=== PATIENT | male | born 1955 | race Caucasian/White ===

== ENCOUNTER 2017-04-06 14:07 | Emergency (ER) | payer MEDICARE ==
[~2017-04-06] VITALS: Wt 104.3 kg
[~2017-04-06 14:07] MED LIST: ATARAX,VISTARIL10 MG PO; ATARAX,VISTARIL50 MG PO; ATARAX25 MG PO; BACTRIM DS 8001 TA1 PO; BACTROBAN22 TP; BANOPHEN25 M1 PO; BENADRYL ALLERG25 M5 PO; BLOOD PRESSURE MED PO; CEPHALEXIN500 M1 PO; DELTASONE20 M1 PO; ELIMITE 5%60 GM T; HYDROCODONE BIT1 T11 PO; HYDROXYZINE PAM50 MG PO; KEFLEX500 M1 PO; KENALOG 0.1%80 GM T; LIDEX 0.05% CRE15 GM T; LIDEX0.05% T; LISINOPRIL10 M1 PO; MEDROL DOSEPAK4 MG PO; PREDNISONE10 MG PO; RANITIDINE HCL150 M1 PO; ROBITUSSIN AC 110 ML PO; TAMSULOSIN HCL0.4 MG JT; VASOTEC5 MG PO; VIBRAMYCIN100 MG PO; VISTARIL25 M2 PO; VISTARIL25 MG PO; VISTARIL50 MG PO
[2017-04-06] MEDS ORDERED: PREDNISONE10 MG PO (14:44)
[2017-04-06] MEDS ORDERED: KENALOG 0.1% OI15 GM T (14:44)
== END 2017-04-06 15:38 | disposition home or self-care (01) ==
LOC: EDSTATUS 14:07 → ED 14:08
DX: R21 Rash and other nonspecific skin eruption (principal); F17.200 Nicotine dependence, unspecified, uncomplicated; I10 Essential (primary) hypertension; Z98.890 Other specified postprocedural states

== ENCOUNTER 2017-05-10 00:12 | Emergency (ER) | payer MEDICARE ==
[~2017-05-10] VITALS: Ht 185.4 cm; Wt 108.9 kg
[~2017-05-10 00:12] MED LIST changes: +KENALOG 0.1% OI15 GM T
[2017-05-10] MEDS ORDERED: CEPHALEXIN500 M1 PO (00:53)
[2017-05-10] MEDS ORDERED: BENADRYL25 M2 PO (00:53)
== END 2017-05-10 01:09 | disposition home or self-care (01) ==
LOC: ED 00:12
DX: R21 Rash and other nonspecific skin eruption (principal); F17.200 Nicotine dependence, unspecified, uncomplicated

== ENCOUNTER 2017-06-11 22:47 | Emergency (ER) | payer MEDICARE ==
[~2017-06-11] VITALS: Ht 185.4 cm; Wt 108.9 kg
[~2017-06-11 22:47] MED LIST changes: +BENADRYL25 M2 PO
[2017-06-11] MEDS ORDERED: CYCLOBENZAPRINE10 MG PO (23:58)
== END 2017-06-12 00:13 | disposition home or self-care (01) ==
LOC: ED 22:47
DX: M25.512 Pain in left shoulder (principal); I10 Essential (primary) hypertension; F17.200 Nicotine dependence, unspecified, uncomplicated

== ENCOUNTER → 2017-10-14 | Outpatient (CLI) | payer MEDICARE ==
[~2017-10-14] MED LIST changes: +CYCLOBENZAPRINE10 MG PO
== END | disposition home or self-care (01) ==
LOC: LAB 14:56
DX: R97.20 Elevated prostate specific antigen [PSA] (principal)

== ENCOUNTER 2017-10-25 17:56 | Emergency (ER) | payer MEDICARE ==
[~2017-10-25] VITALS: Ht 185.4 cm; Wt 108.9 kg
[2017-10-25] MEDS ORDERED: TAMSULOSIN HCL0.4 MG PO (18:00)
[2017-10-25 18:21] LABS: BASO % 0.6 % (0.0-1.0); EOS # 0.3 10*3/uL (0.0-0.4); EOS % 4.5 % (1.0-4.0); HEMATOCRIT 47.3 % (42.0-52.0); HEMOGLOBIN 16.3 g/dl (14.0-18.0); LYMPH % 30.5 % (27.0-41.0); MEAN CELL VOLUME 93.8 fl (80.0-94.0); MEAN CORPUSCULAR HGB 32.3 pg (27.0-31.0); MEAN CORPUSCULAR HGB CONC 34.5 g/dl (33.0-37.0); MEAN PLATELET VOLUME 9.2 fl (9.6-12.3); MONO # 0.5 10*3/uL (0.1-1.0); MONO % 7.9 % (3.0-9.0); NEUT # 3.6 10*3/uL (2.3-7.9); NEUT % 56.3 % (47.0-73.0); PLATELET COUNT AUTOMATED 229 10*3/uL (130-400); RED BLOOD COUNT 5.04 10*6/uL (4.50-5.90); RED CELL DISTRI WIDTH 13.2 % (0-14.5); WHITE BLOOD COUNT 6.5 10*3/uL (4.8-10.8)
[2017-10-25 18:28] LABS: INTERNATIONAL NORM RATIO 0.9 (2.0-3.5)
[2017-10-25 18:47] LABS: ALBUMIN 3.8 gm/dl (3.1-4.5); BUN 5 mg/dl (7-24); CHLORIDE 106 mmol/L (98-107); CREATININE 1.08 mg/dL (0.70-1.30); POTASSIUM 4.2 mmol/L (3.5-5.1); SGOT/AST 13 IU/L (3-35); SGPT/ALT 23 U/L (12-78); SODIUM 142 mmol/L (136-145); TOTAL PROTEIN 7.3 gm/dL (6.4-8.2)
[2017-10-25 18:49] LABS: ALKALINE PHOSPHATASE 91 U/L (45-117); TROPONIN I < 0.015 ng/ml (<0.045)
== END 2017-10-25 21:50 | disposition home or self-care (01) ==
LOC: ED 17:56
PROVIDERS: Physician Assistant
DX: I10 Essential (primary) hypertension (principal); F17.200 Nicotine dependence, unspecified, uncomplicated; M25.512 Pain in left shoulder

== ENCOUNTER 2017-10-27 16:24 | Emergency (ER) | payer MEDICARE ==
[~2017-10-27] VITALS: Wt 111.1 kg
[~2017-10-27 16:24] MED LIST changes: +TAMSULOSIN HCL0.4 MG PO
[2017-10-27 17:31] LABS: BASO % 0.6 % (0.0-1.0); EOS # 0.1 10*3/uL (0.0-0.4); EOS % 2.1 % (1.0-4.0); HEMOGLOBIN 15.9 g/dl (14.0-18.0); LYMPH # 1.5 10*3/uL (1.3-4.4); LYMPH % 22.7 % (27.0-41.0); MEAN CELL VOLUME 91.5 fl (80.0-94.0); MEAN CORPUSCULAR HGB 31.6 pg (27.0-31.0); MEAN CORPUSCULAR HGB CONC 34.6 g/dl (33.0-37.0); MEAN PLATELET VOLUME 9.3 fl (9.6-12.3); MONO # 0.5 10*3/uL (0.1-1.0); NEUT # 4.5 10*3/uL (2.3-7.9); NEUT % 67.5 % (47.0-73.0); PLATELET COUNT AUTOMATED 243 10*3/uL (130-400); RED BLOOD COUNT 5.03 10*6/uL (4.50-5.90); RED CELL DISTRI WIDTH 13.2 % (0-14.5); WHITE BLOOD COUNT 6.7 10*3/uL (4.8-10.8)
[2017-10-27 17:54] LABS: ALBUMIN 3.8 gm/dl (3.1-4.5); ALKALINE PHOSPHATASE 84 U/L (45-117); BUN 6 mg/dl (7-24); CHLORIDE 106 mmol/L (98-107); CREATININE 1.12 mg/dL (0.70-1.30); POTASSIUM 4.3 mmol/L (3.5-5.1); SGOT/AST 14 IU/L (3-35); SGPT/ALT 22 U/L (12-78); SODIUM 140 mmol/L (136-145); TOTAL PROTEIN 7.2 gm/dL (6.4-8.2)
[2017-10-27 18:07] LABS: TROPONIN I < 0.015 ng/ml (<0.045)
[2017-10-27] MEDS ORDERED: EC NAPROSYN,NA500 MG PO (19:17)
== END 2017-10-27 19:27 | disposition home or self-care (01) ==
LOC: ED 16:24
PROVIDERS: Emergency Medicine
DX: M79.602 Pain in left arm (principal); I10 Essential (primary) hypertension; F17.200 Nicotine dependence, unspecified, uncomplicated

== ENCOUNTER 2017-12-07 10:34 | Emergency (ER) | payer MEDICARE ==
[~2017-12-07] VITALS: Ht 185.4 cm; Wt 113.4 kg
[~2017-12-07 10:34] MED LIST changes: +EC NAPROSYN,NA500 MG PO
== END 2017-12-07 12:11 | disposition home or self-care (01) ==
LOC: ED 10:34
DX: M79.641 Pain in right hand (principal); I10 Essential (primary) hypertension; Z98.890 Other specified postprocedural states

== ENCOUNTER 2018-02-05 21:07 | Emergency (ER) | payer MEDICARE ==
[~2018-02-05] VITALS: Ht 185.4 cm; Wt 113.4 kg
[2018-02-05] MEDS ORDERED: HYDROCHLOROTHIA25 M1 PO (21:17)
[2018-02-05] MEDS ORDERED: Motrin,Rufen800 MG PO (23:03)
[2018-02-05] MEDS ORDERED: Orphenadrine C100 MG PO (23:03)
== END 2018-02-05 23:56 | disposition home or self-care (01) ==
LOC: ED 21:07
DX: S86.911A Strain of unspecified muscle(s) and tendon(s) at lower leg level, right leg, initial encounter (principal); F17.200 Nicotine dependence, unspecified, uncomplicated; I10 Essential (primary) hypertension; Z79.899 Other long term (current) drug therapy; Z98.890 Other specified postprocedural states; X50.1XXA Overexertion from prolonged static or awkward postures, initial encounter; Y93.89 Activity, other specified; Y92.89 Other specified places as the place of occurrence of the external cause; Y99.9 Unspecified external cause status

== ENCOUNTER 2018-02-13 00:06 | Emergency (ER) | payer MEDICARE ==
[~2018-02-13] VITALS: Wt 90.7 kg
[~2018-02-13 00:06] MED LIST changes: +HYDROCHLOROTHIA25 M1 PO; +Motrin,Rufen800 MG PO; +Orphenadrine C100 MG PO
[2018-02-13] MEDS ORDERED: KENALOG 0.1%80 GM T (00:48)
== END 2018-02-13 00:56 | disposition home or self-care (01) ==
LOC: ED 00:06
DX: L30.8 Other specified dermatitis (principal); I10 Essential (primary) hypertension; F17.200 Nicotine dependence, unspecified, uncomplicated; Z98.890 Other specified postprocedural states; Z79.899 Other long term (current) drug therapy

== ENCOUNTER → 2018-07-12 | Outpatient (CLI) | payer MEDICARE ==
[2018-07-12 17:51] LABS: BASO # 0.1 10*3/uL (0.0-0.1); BASO % 0.8 % (0.0-1.0); EOS # 0.4 10*3/uL (0.0-0.4); EOS % 5.6 % (1.0-4.0); HEMATOCRIT 46.7 % (42.0-52.0); LYMPH # 2.1 10*3/uL (1.3-4.4); LYMPH % 32.7 % (27.0-41.0); MEAN CORPUSCULAR HGB 32.2 pg (27.0-31.0); MEAN CORPUSCULAR HGB CONC 34.3 g/dl (33.0-37.0); MEAN PLATELET VOLUME 9.2 fl (9.6-12.3); MONO # 0.6 10*3/uL (0.1-1.0); MONO % 9.3 % (3.0-9.0); NEUT # 3.3 10*3/uL (2.3-7.9); NEUT % 51.4 % (47.0-73.0); PLATELET COUNT AUTOMATED 229 10*3/uL (130-400); RED BLOOD COUNT 4.97 10*6/uL (4.50-5.90); RED CELL DISTRI WIDTH 12.8 % (0-14.5); WHITE BLOOD COUNT 6.4 10*3/uL (4.8-10.8)
[2018-07-12 18:00] LABS: BILIRUBIN NEGATIVE (NEGATIVE); BLOOD NEGATIVE (NEGATIVE); CLARITY CLEAR (CLEAR); COLOR YELLOW (YELLOW); GLUCOSE NEGATIVE (NEGATIVE); KETONE NEGATIVE (NEGATIVE); LEUKO ESTERASE NEGATIVE (NEGATIVE); NITRITE NEGATIVE (NEGATIVE); PH 6.5 (5.0-9.0); SPECIFIC GRAVITY <= 1.005 (1.005-1.030); UROBILINOGEN 0.2 E.U./dl (0.2-1.0)
[2018-07-12 18:07] LABS: EPITHELIAL CELLS 0-2; RBC 0-2 rbc/hpf (0-2); WBC 0-2 wbc/hpf (0-5)
[2018-07-12 18:08] LABS: BACTERIA TRACE
[2018-07-12 18:21] LABS: ALBUMIN 3.6 gm/dl (3.1-4.5); ALKALINE PHOSPHATASE 91 U/L (45-117); BUN 7 mg/dl (7-24); CHLORIDE 105 mmol/L (98-107); CREATININE 1.01 mg/dL (0.70-1.30); POTASSIUM 3.8 mmol/L (3.5-5.1); SGOT/AST 14 IU/L (3-35); SGPT/ALT 20 U/L (12-78); SODIUM 139 mmol/L (136-145); TOTAL PROTEIN 7.3 gm/dL (6.4-8.2)
== END | disposition home or self-care (01) ==
LOC: LAB 16:39 → US 17:00
PROVIDERS: Urology
DX: N28.1 Cyst of kidney, acquired (principal); K57.30 Diverticulosis of large intestine without perforation or abscess without bleeding; D40.0 Neoplasm of uncertain behavior of prostate; I10 Essential (primary) hypertension; R40.1 Stupor

== ENCOUNTER → 2018-09-09 | Outpatient (CLI) | payer MEDICARE | END | disposition home or self-care (01) | LOC: CT 08:00 | DX: C61 Malignant neoplasm of prostate (principal); K42.9 Umbilical hernia without obstruction or gangrene; N28.1 Cyst of kidney, acquired; R06.02 Shortness of breath; I10 Essential (primary) hypertension; F17.210 Nicotine dependence, cigarettes, uncomplicated ==

== ENCOUNTER → 2018-09-13 | Outpatient (CLI) | payer MEDICARE | END | disposition home or self-care (01) | LOC: NM 09:45 | DX: C61 Malignant neoplasm of prostate (principal); M19.071 Primary osteoarthritis, right ankle and foot; M19.031 Primary osteoarthritis, right wrist; M19.011 Primary osteoarthritis, right shoulder; M19.012 Primary osteoarthritis, left shoulder ==

== ENCOUNTER → 2019-06-21 | Outpatient (CLI) | payer MEDICARE | END | disposition home or self-care (01) | LOC: RESCLI 01:46 | DX: L30.9 Dermatitis, unspecified (principal); Z79.899 Other long term (current) drug therapy; Z88.8 Allergy status to other drugs, medicaments and biological substances ==

== ENCOUNTER → 2019-07-28 | Outpatient (CLI) | payer MEDICARE ==
--- NOTE | ~2019-07-28 | EKG ---
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
== END | disposition home or self-care (01) ==
LOC: RESCLI 01:11
DX: L30.9 Dermatitis, unspecified (principal)

== ENCOUNTER → 2019-08-25 | Outpatient (CLI) | payer MEDICARE | END | disposition home or self-care (01) | LOC: CARD 11:37 | DX: I35.8 Other nonrheumatic aortic valve disorders (principal); I49.9 Cardiac arrhythmia, unspecified; Z79.899 Other long term (current) drug therapy ==

== ENCOUNTER → 2019-09-01 | Outpatient (CLI) | payer MEDICARE | END | disposition home or self-care (01) | LOC: RESCLI 00:43 | DX: L30.9 Dermatitis, unspecified (principal); I10 Essential (primary) hypertension; I49.9 Cardiac arrhythmia, unspecified; N52.9 Male erectile dysfunction, unspecified; F17.200 Nicotine dependence, unspecified, uncomplicated; R01.1 Cardiac murmur, unspecified; Z79.899 Other long term (current) drug therapy ==

== ENCOUNTER 2019-10-21 01:26 | Emergency (ER) | payer MEDICARE ==
[~2019-10-21] VITALS: Ht 185.4 cm; Wt 124.7 kg
[2019-10-21 02:52] LABS: BASO # 0.1 10*3/uL (0.0-0.1); BASO % 0.7 % (0.0-1.0); EOS # 0.4 10*3/uL (0.0-0.4); EOS % 4.8 % (1.0-4.0); HEMOGLOBIN 15.5 g/dl (14.0-18.0); LYMPH # 2.5 10*3/uL (1.3-4.4); LYMPH % 28.5 % (27.0-41.0); MEAN CELL VOLUME 95.3 fl (80.0-94.0); MEAN CORPUSCULAR HGB 31.4 pg (27.0-31.0); MEAN PLATELET VOLUME 9.4 fl (9.6-12.3); MONO # 0.8 10*3/uL (0.1-1.0); NEUT # 4.9 10*3/uL (2.3-7.9); NEUT % 56.8 % (47.0-73.0); PLATELET COUNT AUTOMATED 236 10*3/uL (130-400); RED BLOOD COUNT 4.93 10*6/uL (4.50-5.90); RED CELL DISTRI WIDTH 13.6 % (0-14.5); WHITE BLOOD COUNT 8.6 10*3/uL (4.8-10.8)
[2019-10-21 03:08] LABS: ALBUMIN 3.4 gm/dl (3.1-4.5); ALKALINE PHOSPHATASE 99 U/L (45-117); BUN 9 mg/dl (7-24); CHLORIDE 111 mmol/L (98-107); CREATININE 1.03 mg/dL (0.70-1.30); LIPASE 294 U/L (73-393); POTASSIUM 3.5 mmol/L (3.5-5.1); SGOT/AST 13 IU/L (3-35); SODIUM 142 mmol/L (136-145); TOTAL PROTEIN 6.7 gm/dL (6.4-8.2)
[2019-10-21 03:10] LABS: SGPT/ALT 20 U/L (12-78)
[2019-10-21 03:16] LABS: BILIRUBIN NEGATIVE (NEGATIVE); BLOOD NEGATIVE (NEGATIVE); CLARITY CLEAR (CLEAR); COLOR YELLOW (YELLOW); GLUCOSE NEGATIVE (NEGATIVE); KETONE NEGATIVE (NEGATIVE); LEUKO ESTERASE NEGATIVE (NEGATIVE); NITRITE NEGATIVE (NEGATIVE); PH 6.5 (5.0-9.0); SPECIFIC GRAVITY 1.005 (1.005-1.030); UROBILINOGEN 0.2 E.U./dl (0.2-1.0)
[2019-10-21 03:39] LABS: BACTERIA TRACE
== END 2019-10-21 05:11 | disposition home or self-care (01) ==
LOC: ED 01:26
PROVIDERS: Emergency Medicine
DX: K63.89 Other specified diseases of intestine (principal); I10 Essential (primary) hypertension; Z79.899 Other long term (current) drug therapy; Z86.73 Personal history of transient ischemic attack (TIA), and cerebral infarction without residual deficits

== ENCOUNTER 2020-01-13 14:26 | Emergency (ER) | payer OTHER ==
[~2020-01-13] VITALS: Ht 185.4 cm; Wt 108.9 kg
[2020-01-13 15:11] LABS: BASO # 0.1 10*3/uL (0.0-0.1); BASO % 0.8 % (0.0-1.0); EOS # 0.5 10*3/uL (0.0-0.4); EOS % 5.8 % (1.0-4.0); LYMPH # 1.7 10*3/uL (1.3-4.4); MEAN CELL VOLUME 93.9 fl (80.0-94.0); MEAN CORPUSCULAR HGB CONC 34.1 g/dl (33.0-37.0); MEAN PLATELET VOLUME 9.5 fl (9.6-12.3); MONO # 0.8 10*3/uL (0.1-1.0); MONO % 10.6 % (3.0-9.0); NEUT # 4.9 10*3/uL (2.3-7.9); NEUT % 61.7 % (47.0-73.0); PLATELET COUNT AUTOMATED 293 10*3/uL (130-400); RED CELL DISTRI WIDTH 13.2 % (0-14.5)
[2020-01-13 15:27] LABS: ALBUMIN 3.3 gm/dl (3.1-4.5); ALKALINE PHOSPHATASE 108 U/L (45-117); BUN 10 mg/dl (7-24); CHLORIDE 110 mmol/L (98-107); CREATININE 1.03 mg/dL (0.70-1.30); POTASSIUM 3.9 mmol/L (3.5-5.1); SGOT/AST 24 IU/L (3-35); SGPT/ALT 30 U/L (12-78); SODIUM 141 mmol/L (136-145); TOTAL PROTEIN 6.9 gm/dL (6.4-8.2)
[2020-01-13 16:55] LABS: BILIRUBIN NEGATIVE (NEGATIVE); BLOOD NEGATIVE (NEGATIVE); CLARITY CLEAR (CLEAR); COLOR YELLOW (YELLOW); GLUCOSE NEGATIVE (NEGATIVE); KETONE NEGATIVE (NEGATIVE); LEUKO ESTERASE NEGATIVE (NEGATIVE); NITRITE NEGATIVE (NEGATIVE); PH 7.5 (5.0-9.0); SPECIFIC GRAVITY 1.015 (1.005-1.030); UROBILINOGEN 0.2 E.U./dl (0.2-1.0)
[2020-01-13 16:56] LABS: BACTERIA TRACE
== END 2020-01-13 17:41 | disposition home or self-care (01) ==
LOC: ED 14:26
PROVIDERS: Emergency Medicine
DX: R10.9 Unspecified abdominal pain (principal); I10 Essential (primary) hypertension; F17.200 Nicotine dependence, unspecified, uncomplicated; Z79.899 Other long term (current) drug therapy; Z79.2 Long term (current) use of antibiotics; Z86.73 Personal history of transient ischemic attack (TIA), and cerebral infarction without residual deficits

== ENCOUNTER → 2020-02-03 | Day surgery (SDC) | payer OTHER ==
[~2020-02-03] VITALS: Ht 185.4 cm; Wt 113.4 kg
[~2020-02-03] MED LIST changes: +AMLODIPINE BESY10 MG PO; +ANUSOL-HC25 MG R; +HYDROXYZINE HCL25 MG PO; +LISINOPRIL20 MG PO
[2020-02-03 06:50] VITALS: BP 184/95
[2020-02-03 08:03] VITALS: BP 128/64
[2020-02-03 08:18] VITALS: BP 140/80
[2020-02-03 08:26] VITALS: BP 150/70
== END | disposition home or self-care (01) ==
LOC: SDC 01-30 09:30
DX: D12.3 Benign neoplasm of transverse colon (principal); D12.2 Benign neoplasm of ascending colon; K57.90 Diverticulosis of intestine, part unspecified, without perforation or abscess without bleeding; K64.8 Other hemorrhoids; I10 Essential (primary) hypertension; Z86.73 Personal history of transient ischemic attack (TIA), and cerebral infarction without residual deficits

== ENCOUNTER 2020-02-04 18:19 | Emergency (ER) | payer OTHER ==
[~2020-02-04] VITALS: Ht 185.4 cm; Wt 113.4 kg
[~2020-02-04 18:19] MED LIST changes: -ANUSOL-HC25 MG R
[2020-02-04 19:20] LABS: BASO # 0.1 10*3/uL (0.0-0.1); BASO % 0.9 % (0.0-1.0); EOS # 0.4 10*3/uL (0.0-0.4); HEMATOCRIT 44.3 % (42.0-52.0); LYMPH % 29.1 % (27.0-41.0); MEAN CELL VOLUME 95.3 fl (80.0-94.0); MEAN CORPUSCULAR HGB 32.3 pg (27.0-31.0); MEAN CORPUSCULAR HGB CONC 33.9 g/dl (33.0-37.0); MEAN PLATELET VOLUME 9.4 fl (9.6-12.3); MONO # 0.6 10*3/uL (0.1-1.0); MONO % 9.6 % (3.0-9.0); NEUT # 3.6 10*3/uL (2.3-7.9); NEUT % 54.3 % (47.0-73.0); PLATELET COUNT AUTOMATED 273 10*3/uL (130-400); RED BLOOD COUNT 4.65 10*6/uL (4.50-5.90); RED CELL DISTRI WIDTH 13.2 % (0-14.5); WHITE BLOOD COUNT 6.7 10*3/uL (4.8-10.8)
[2020-02-04 19:31] LABS: ACT PARTIAL THROMBO TIME 27.5 SECONDS (20.0-32.1); INTERNATIONAL NORM RATIO 0.9 (2.0-3.5)
[2020-02-04 19:34] LABS: ALBUMIN 3.4 gm/dl (3.1-4.5); ALKALINE PHOSPHATASE 105 U/L (45-117); BUN 6 mg/dl (7-24); CHLORIDE 109 mmol/L (98-107); CREATININE 0.99 mg/dL (0.70-1.30); POTASSIUM 4.1 mmol/L (3.5-5.1); SGOT/AST 11 IU/L (3-35); SGPT/ALT 20 U/L (12-78); SODIUM 143 mmol/L (136-145); TOTAL PROTEIN 6.7 gm/dL (6.4-8.2)
[2020-02-04] MEDS ORDERED: ANUSOL-HC25 MG R (20:56)
== END 2020-02-04 21:10 | disposition home or self-care (01) ==
LOC: ED 18:19
PROVIDERS: Emergency Medicine Emergency Medical Services
DX: K64.8 Other hemorrhoids (principal); I10 Essential (primary) hypertension; F17.200 Nicotine dependence, unspecified, uncomplicated; Z79.899 Other long term (current) drug therapy; Z86.718 Personal history of other venous thrombosis and embolism

== ENCOUNTER 2020-03-23 04:04 | Emergency (ER) | payer OTHER ==
[~2020-03-23] VITALS: Ht 185.4 cm; Wt 117.9 kg
[~2020-03-23 04:04] MED LIST changes: +ANUSOL-HC25 MG R
[2020-03-23 04:37] LABS: HEMATOCRIT 43.7 % (42.0-52.0); MEAN CORPUSCULAR HGB 31.7 pg (27.0-31.0); MEAN CORPUSCULAR HGB CONC 34.1 g/dl (33.0-37.0); MEAN PLATELET VOLUME 9.4 fl (9.6-12.3); PLATELET COUNT AUTOMATED 256 10*3/uL (130-400); RED CELL DISTRI WIDTH 13.2 % (0-14.5); WHITE BLOOD COUNT 8.6 10*3/uL (4.8-10.8)
[2020-03-23 04:49] LABS: BUN 6 mg/dl (7-24); CHLORIDE 109 mmol/L (98-107); CREATININE 0.96 mg/dL (0.70-1.30); POTASSIUM 3.6 mmol/L (3.5-5.1); SODIUM 140 mmol/L (136-145); URIC ACID 4.2 mg/dL (3.5-7.2)
[2020-03-23 04:56] LABS: ATYPICAL LYMPHS 3 % (0-0); PLATELET SUFFICIENCY NORMAL (NORMAL); TOTAL CELLS COUNTED 100 #CELLS
[2020-03-23] MEDS ORDERED: CEPHALEXIN500 M1 PO (05:29)
== END 2020-03-23 05:39 | disposition home or self-care (01) ==
LOC: ED 04:04
PROVIDERS: Emergency Medicine
DX: L03.116 Cellulitis of left lower limb (principal); I10 Essential (primary) hypertension; Z79.899 Other long term (current) drug therapy

== ENCOUNTER 2020-05-19 11:09 | Emergency (ER) | payer OTHER ==
[~2020-05-19] VITALS: Ht 185 cm; Wt 113.4 kg
[2020-05-19] MEDS ORDERED: ROBAXIN-750750 MG PO (12:12)
== END 2020-05-19 14:05 | disposition home or self-care (01) ==
LOC: ED 11:09
DX: S29.012A Strain of muscle and tendon of back wall of thorax, initial encounter (principal); F17.200 Nicotine dependence, unspecified, uncomplicated; Z79.899 Other long term (current) drug therapy; X58.XXXA Exposure to other specified factors, initial encounter; Y93.89 Activity, other specified; Y92.89 Other specified places as the place of occurrence of the external cause; Y99.8 Other external cause status

== ENCOUNTER 2020-06-05 20:18 | Emergency (ER) | payer OTHER ==
[~2020-06-05] VITALS: Ht 182.8 cm; Wt 90.7 kg
[~2020-06-05 20:18] MED LIST changes: +ROBAXIN-750750 MG PO
[2020-06-05 22:35] LABS: BASO # 0.1 10*3/uL (0.0-0.1); BASO % 0.6 % (0.0-1.0); EOS # 0.2 10*3/uL (0.0-0.4); EOS % 2.2 % (1.0-4.0); LYMPH # 1.8 10*3/uL (1.3-4.4); LYMPH % 19.9 % (27.0-41.0); MEAN CELL VOLUME 94.4 fl (80.0-94.0); MEAN CORPUSCULAR HGB CONC 32.9 g/dl (33.0-37.0); MEAN PLATELET VOLUME 9.7 fl (9.6-12.3); MONO # 0.7 10*3/uL (0.1-1.0); MONO % 8.4 % (3.0-9.0); NEUT % 68.7 % (47.0-73.0); PLATELET COUNT AUTOMATED 298 10*3/uL (130-400); RED BLOOD COUNT 5.19 10*6/uL (4.50-5.90); RED CELL DISTRI WIDTH 13.3 % (0-14.5); WHITE BLOOD COUNT 8.8 10*3/uL (4.8-10.8)
[2020-06-05 22:53] LABS: ALBUMIN 3.5 gm/dl (3.1-4.5); ALKALINE PHOSPHATASE 91 U/L (45-117); BUN 7 mg/dl (7-24); CHLORIDE 110 mmol/L (98-107); CREATININE 1.02 mg/dL (0.70-1.30); LIPASE 80 U/L (73-393); SGOT/AST 22 IU/L (3-35); SGPT/ALT 24 U/L (12-78); SODIUM 143 mmol/L (136-145); TOTAL PROTEIN 7.2 gm/dL (6.4-8.2)
[2020-06-05 22:54] LABS: POTASSIUM 4.3 mmol/L (3.5-5.1)
[2020-06-06] MEDS ORDERED: ANUSOL HC,ANUCO25 MG PO (00:40)
[2020-06-06 00:42] LABS: BILIRUBIN NEGATIVE; BLOOD NEGATIVE (NEGATIVE); CLARITY CLEAR (CLEAR); COLOR YELLOW (YELLOW); GLUCOSE NEGATIVE; KETONE NEGATIVE; PH 6.5 (4.5-8.0); SPECIFIC GRAVITY 1.025 (1.001-1.030)
[2020-06-06 00:43] LABS: LEUKO ESTERASE NEGATIVE (NEGATIVE); NITRITE NEGATIVE (NEGATIVE)
[2020-06-06 00:50] LABS: BACTERIA TRACE; EPITHELIAL CELLS 0-2; WBC 0-2 wbc/hpf (0-5)
== END 2020-06-06 01:00 | disposition home or self-care (01) ==
LOC: ED 20:18
PROVIDERS: Emergency Medicine
DX: K62.5 Hemorrhage of anus and rectum (principal); K64.9 Unspecified hemorrhoids; I10 Essential (primary) hypertension; Z79.899 Other long term (current) drug therapy; Z79.2 Long term (current) use of antibiotics

== ENCOUNTER 2020-06-18 13:40 | Emergency (ER) | payer OTHER ==
[~2020-06-18] VITALS: Ht 185.4 cm; Wt 113.4 kg
[~2020-06-18 13:40] MED LIST changes: +ANUSOL HC,ANUCO25 MG PO
== END 2020-06-18 16:43 | disposition home or self-care (01) ==
LOC: ED 13:40
DX: S96.912A Strain of unspecified muscle and tendon at ankle and foot level, left foot, initial encounter (principal); Z79.899 Other long term (current) drug therapy; X50.1XXA Overexertion from prolonged static or awkward postures, initial encounter; Y93.89 Activity, other specified; Y92.89 Other specified places as the place of occurrence of the external cause; Y99.8 Other external cause status

== ENCOUNTER 2021-01-30 18:33 | Inpatient (IN) | payer OTHER ==
[~2021-01-30] VITALS: Ht 185.4 cm; Wt 112.5 kg
[2021-01-30 18:40] VITALS: BP 220/120
[2021-01-30 19:02] VITALS: BP 190/108
[2021-01-30 19:19] LABS: HEMATOCRIT 49.5 % (42.0-52.0); MEAN CELL VOLUME 92.9 fl (80.0-94.0); MEAN CORPUSCULAR HGB 31.7 pg (27.0-31.0); MEAN CORPUSCULAR HGB CONC 34.1 g/dl (33.0-37.0); MEAN PLATELET VOLUME 9.7 fl (9.6-12.3); PLATELET COUNT AUTOMATED 273 10*3/uL (130-400); RED BLOOD COUNT 5.33 10*6/uL (4.50-5.90); RED CELL DISTRI WIDTH 13.4 % (0-14.5); WHITE BLOOD COUNT 18.4 10*3/uL (4.8-10.8)
[2021-01-30 19:35] LABS: ALBUMIN 3.8 gm/dl (3.1-4.5); ALKALINE PHOSPHATASE 91 U/L (45-117); BUN 10 mg/dl (7-24); CHLORIDE 108 mmol/L (98-107); CREATININE 0.98 mg/dL (0.70-1.30); LIPASE 88 U/L (73-393); POTASSIUM 4.1 mmol/L (3.5-5.1); SGOT/AST 19 IU/L (3-35); SGPT/ALT 27 U/L (12-78); SODIUM 139 mmol/L (136-145); TOTAL PROTEIN 7.2 gm/dL (6.4-8.2)
[2021-01-30 19:45] LABS: PLATELET SUFFICIENCY NORMAL (NORMAL); TOTAL CELLS COUNTED 100 #CELLS
[2021-01-30 20:42] LABS: BILIRUBIN Negative (Negative); BLOOD Negative (Negative); CLARITY Clear (Clear); COLOR Yellow (Yellow); GLUCOSE Negative (Negative); KETONE Negative (Negative); LEUKO ESTERASE Negative (Negative); NITRITE Negative (Negative); SPECIFIC GRAVITY 1.015 (1.001-1.030); UROBILINOGEN 0.2 E.U./dl (0.0-1.0)
[2021-01-30 21:05] LABS: PH 8.5 (4.5-8.0)
[2021-01-30 21:10] LABS: BACTERIA TRACE; EPITHELIAL CELLS 0-2; WBC 0-2 wbc/hpf (0-5)
[2021-01-30 23:45] VITALS: BP 188/94
[2021-01-31] VITALS: BP 188/94
[2021-01-31 05:18] LABS: ALBUMIN 3.4 gm/dl (3.1-4.5); BUN 12 mg/dl (7-24); CHLORIDE 107 mmol/L (98-107); CHOLESTEROL 176 mg/dL (<200); CREATININE 1.03 mg/dL (0.70-1.30); POTASSIUM 3.7 mmol/L (3.5-5.1); SGOT/AST 15 IU/L (3-35); SGPT/ALT 21 U/L (12-78); SODIUM 138 mmol/L (136-145); TOTAL PROTEIN 6.8 gm/dL (6.4-8.2); TRIGLYCERIDES 101 mg/dl (<150)
[2021-01-31 05:25] LABS: ALKALINE PHOSPHATASE 82 U/L (45-117); LDL CHOLESTEROL 113 mg/dL (9-159); THYROID STIM HORMONE (HS) 0.867 uIU/ml (0.358-4.75)
[2021-01-31 06:17] LABS: HEMATOCRIT 47.3 % (42.0-52.0); MEAN CORPUSCULAR HGB 31.6 pg (27.0-31.0); MEAN CORPUSCULAR HGB CONC 33.6 g/dl (33.0-37.0); MEAN PLATELET VOLUME 10.5 fl (9.6-12.3); PLATELET COUNT AUTOMATED 248 10*3/uL (130-400); RED BLOOD COUNT 5.03 10*6/uL (4.50-5.90); RED CELL DISTRI WIDTH 13.3 % (0-14.5); WHITE BLOOD COUNT 23.3 10*3/uL (4.8-10.8)
[2021-01-31 06:20] LABS: ACT PARTIAL THROMBO TIME 29.3 SECONDS (20.0-32.1)
[2021-01-31 06:59] LABS: BURR CELLS FEW; PLATELET SUFFICIENCY NORMAL (NORMAL); TOTAL CELLS COUNTED 100 #CELLS
[2021-01-31 08:00] VITALS: BP 131/68
[2021-01-31 08:01] LABS: VITAMIN D, 25-HYDROXY 5.6 ng/mL (30-100)
[2021-01-31 12:00] VITALS: BP 174/74
[2021-01-31 16:00] VITALS: BP 154/62
== END 2021-01-31 16:47 | disposition short-term general hospital (02) | DRG 871 ==
LOC: ED 18:33 → EDHOLD 22:16 → 4E 22:16 → 5E 23:17 → 4E 23:20
PROVIDERS: Hospitalist; Physician Assistant; ADMIT Internal Medicine; ATTEND Internal Medicine
DX: A41.9 Sepsis, unspecified organism (principal); K55.069 Acute infarction of intestine, part and extent unspecified; K52.9 Noninfective gastroenteritis and colitis, unspecified; I16.0 Hypertensive urgency; I10 Essential (primary) hypertension; Z79.899 Other long term (current) drug therapy; Z68.32 Body mass index [BMI] 32.0-32.9, adult

== ENCOUNTER → 2021-05-02 | Outpatient (CLI) | payer OTHER ==
[~2021-05-02] MED LIST changes: +ASPIRIN CHEWABL81 MG PO; +CLOPIDOGREL75 MG PO; +HYDR25T PO; +HYDROCHLOROTH12.5 M3 PO; +HYDROXYZINE PAM25 M1 PO; +LISINOPRIL40 MG PO; +MIRTAZAPINE7.5 MG PO; +NAPROSYN500 MG PO; +NICODERM CQ1 EAC1 T; +OXYCODONE5 M1 PO; +QUETIAPINE FUMA25 MG PO; +TYLENOL325 M1 PO; +VITAMIN D31250 MC1 PO; +VOLTAREN ARTHRI20 GM T
== END | disposition home or self-care (01) ==
LOC: RAD 13:02
PROVIDERS: ATTEND Family Medicine
DX: M75.101 Unspecified rotator cuff tear or rupture of right shoulder, not specified as traumatic (principal)

== ENCOUNTER → 2021-05-31 | Outpatient (CLI) | payer OTHER | END | disposition home or self-care (01) | LOC: US 05-28 14:00 | PROVIDERS: ATTEND Family Medicine | DX: I70.202 Unspecified atherosclerosis of native arteries of extremities, left leg (principal); R09.89 Other specified symptoms and signs involving the circulatory and respiratory systems ==

== ENCOUNTER 2021-06-04 22:46 | Emergency (ER) | payer OTHER ==
[~2021-06-04] VITALS: Ht 185.4 cm; Wt 99.8 kg
[2021-06-04 23:43] LABS: BASO # 0.1 10*3/uL (0.0-0.1); BASO % 0.6 % (0.0-1.0); EOS # 0.2 10*3/uL (0.0-0.4); EOS % 1.5 % (1.0-4.0); HEMATOCRIT 42.7 % (42.0-52.0); LYMPH % 24.2 % (27.0-41.0); MEAN CELL VOLUME 95.1 fl (80.0-94.0); MEAN CORPUSCULAR HGB 29.8 pg (27.0-31.0); MEAN CORPUSCULAR HGB CONC 31.4 g/dl (33.0-37.0); MEAN PLATELET VOLUME 9.3 fl (9.6-12.3); MONO # 1.1 10*3/uL (0.1-1.0); MONO % 8.7 % (3.0-9.0); NEUT # 7.9 10*3/uL (2.3-7.9); NEUT % 64.8 % (47.0-73.0); PLATELET COUNT AUTOMATED 307 10*3/uL (130-400); RED BLOOD COUNT 4.49 10*6/uL (4.50-5.90); RED CELL DISTRI WIDTH 14.4 % (0-14.5); WHITE BLOOD COUNT 12.2 10*3/uL (4.8-10.8)
[2021-06-05 00:15] LABS: ALBUMIN 3.2 gm/dl (3.1-4.5); ALKALINE PHOSPHATASE 101 U/L (45-117); BUN 15 mg/dl (7-24); CHLORIDE 109 mmol/L (98-107); CREATININE 1.14 mg/dL (0.70-1.30); SGOT/AST 10 IU/L (3-35); SGPT/ALT 16 U/L (12-78); SODIUM 142 mmol/L (136-145)
== END 2021-06-05 01:15 | disposition home or self-care (01) ==
LOC: ED 22:46
PROVIDERS: Internal Medicine
DX: K64.4 Residual hemorrhoidal skin tags (principal); F17.200 Nicotine dependence, unspecified, uncomplicated; Z79.899 Other long term (current) drug therapy; Z79.82 Long term (current) use of aspirin; Z98.890 Other specified postprocedural states